=== PATIENT | male | born 1965 | race Caucasian/White ===

== ENCOUNTER 2016-04-13 11:49 | Inpatient (IN) | payer OTHER ==
[~2016-04-13] VITALS: Ht 167.6 cm; Wt 78.0 kg
[~2016-04-13 11:49] MED LIST: DAILY MULTIPLE1 EACH PO; GABAPENTIN300 M2 PO; LIPITOR20 M2 PO; LORAZEPAM1 M1 PO; METOPROLOL SUCC50 M2 PO; TRAZODONE HCL150 M1 PO
--- NOTE | 2016-04-13 11:54 | NUR ---
TRIAGE: 50 Y/O MALE PRESENTS C/O ETOH WITHDRAWAL, "I CAN'T SLEEP AND I'M HAVING NIGHTMARES." "I'M REQUESTING HELP." WHEN QUESTIONS REGARDING DETOX WERE POSED, PATIENT RESPONDED, "I DON'T KNOW." PATIENT APPEARS FLUSHED. BP 140/89. 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 DENIES ILLICIT DRUGS. PATIENT DENIES SUICIDALITY OR HOMICIDALITY.
--- NOTE | 2016-04-13 11:58 | NUR ---
PATIENT TO ROOM 13 VIA WHEELCHAIR AT THIS TIME. AMBULATES INDEPENDENTLY. SITTER REMAINS IN PLACE FOR PATIENT SAFETY. SITTER STATES THAT SHE WILL CONTACT SECURITY STAFF FOR A PATIENT WANDING.
--- NOTE | 2016-04-13 12:24 | NUR ---
(1) clothes bag locked in closet. PT's took home his valuables.
--- NOTE | 2016-04-13 12:27 | ED GENERAL ADULT ---
History of Present Illness General Chief Complaint: ETOH/Drug Related Complaint Stated Complaint: ALCHOHOL WITHDRAWL Source: patient, family, old records Exam Limitations: no limitations Vital Signs & Intake/Output Vital Signs & Intake/Output Vital Signs Date Time Temp Pulse Resp B/P Pulse O2 O2 Flow FiO2 Ox Delivery Rate 04/13 1505 96.9 87 20 122/60 04/13 1504 96.9 87 20 122/60 96 Room Air 04/13 1235 Room Air 04/13 1154 97.9 76 16 140/90 98 Room Air Room Air Allergies Coded Allergies: No Known Allergies (03/11/16) Reconcile Medications Atorvastatin Calcium (Lipitor) 20 MG TABLET 1 TAB PO DAILY DIRECTED ( Reported) Gabapentin 300 MG CAPSULE 2 CAP PO TID DIRECTED (Reported) Metoprolol Succinate 50 MG TAB.ER.24H 1 TAB PO DAILY DIRECTED (Reported) Multivitamin (Daily Multiple Vitamin) 1 EACH TABLET 1 TAB PO DAILY DIRECTED (Reported) Triage Note: TRIAGE: 50 Y/O MALE PRESENTS C/O ETOH WITHDRAWAL, "I CAN'T SLEEP AND I'M HAVING NIGHTMARES." "I'M REQUESTING HELP." WHEN QUESTIONS REGARDING DETOX WERE POSED, PATIENT RESPONDED, "I DON'T KNOW." PATIENT APPEARS FLUSHED. BP 140/89. 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 DENIES ILLICIT DRUGS. PATIENT DENIES SUICIDALITY OR HOMICIDALITY. Triage Nurses Notes Reviewed? yes HPI: Patient presents requesting alcohol detox. Patient was admitted on March 11 and then discharge on however he was sent home without a plan. Patient has been to the [facility] in the past. Patient was able to remain sober for approximately 2 and half weeks before he started drinking again. Patient's last drink was prior to arrival. Patient states he gets very shaky when he does not drink. Patient does have a history of withdrawal seizures. Patient was able to call the [facility] and they state that they will take him back once he has been medically detox. They request that his called them with anticipated discharge date and then she is to take him straight to the airport and they're going to fly to [place] for admission there. Patient denies any suicidal or homicidal ideations. Patient denies any hallucinations. STATES THAT HE HAS BEEN DRINKING HIS MEALS FOR THE PAST 4-5 DAYS AND WHENEVER HE HASN'T HAD ANYTHING WITHOUT ALL HE HAS VOMITED. Past History Travel History Traveled to [place] past 21 day No Medical History Any Pertinent Medical History? 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 No Review of Systems Review of Systems Constitutional: Reports: no symptoms. EENTM: Reports: no symptoms. Respiratory: Reports: no symptoms. Cardiovascular: Reports: no symptoms. GI: Reports: see HPI, nausea, vomiting. Genitourinary: Reports: no symptoms. Musculoskeletal: Reports: no symptoms. Skin: Reports: no symptoms. Neurological/Psychological: Reports: no symptoms. Hematologic/Endocrine: Reports: no symptoms. Immunologic/Allergic: Reports: no symptoms. All Other Systems: Reviewed and Negative Physical Exam Physical Exam General Appearance: well developed/nourished, alert, awake, moderate distress Head: atraumatic, normal appearance Eyes: Bilateral: PERRL, EOMI, other (SLUGGISH). Ears, Nose, Throat: normal pharynx, normal ENT inspection, hearing grossly normal Neck: normal inspection, supple, full range of motion Respiratory: normal breath sounds, chest non-tender, no respiratory distress, lungs clear Cardiovascular: regular rate/rhythm, normal peripheral pulses Gastrointestinal: normal bowel sounds, soft, non-tender Back: normal inspection, normal range of motion Extremities: normal inspection, normal capillary refill, normal range of motion, no edema Neurologic/Psych: no motor/sensory deficits, awake, alert, oriented x 3 Skin: intact, normal color, warm/dry Lymphatic: no anterior cervical ramon Core Measures ACS in differential dx? No CVA/TIA Diagnosis: No Severe Sepsis Present: No Septic Shock Present: No Progress Differential Diagnoses I considered the following diagnoses in my evaluation of the patient: [Alcohol dependency, electrolyte abnormality] Plan of Care: Orders Procedure Date/time Status Patient Data 04/13 1513 Active Admit to inpatient 04/13 1508 Active CIWA 04/13 1205 Active URINE DRUGS OF ABUSE 04/13 1205 Active ETHANOL 04/13 1205 Complete COMPREHENSIVE METABOLIC PANEL 04/13 120 Complete CBC WITHOUT DIFFERENTIAL 04/13 1204 Complete Laboratory Tests 04/13/16 1222: Anion Gap 21 H, Estimated GFR > 60, BUN/Creatinine Ratio 18.3, Glucose 103 H, Calcium 9.5, Total Bilirubin 0.8, AST 61 H, ALT 56, Alkaline Phosphatase 115, Total Protein 7.8, Albumin 5.3 H, Globulin 2.5, Albumin/Globulin Ratio 2.1, CBC w Diff NO MAN DIFF REQ, RBC 5.06, MCV 97.3 H, MCH 33.1 H, RDW 14.3, MPV 7.7, Gran % 70.1, Lymphocytes % 22.9, Monocytes % 6.4, Eosinophils % 0.2, Basophils % 0.4, Absolute Granulocytes 5.0, Absolute Lymphocytes 1.6, Absolute Monocytes 0.5 , Absolute Eosinophils 0, Absolute Basophils 0, PUBS MCHC 34.0, Serum Alcohol 353.0 Initial ED EKG: none Departure Departure Disposition: STILL A PATIENT Condition: Guarded Clinical Impression Primary Impression: Alcohol dependence with withdrawal Referrals: JOSELUIS ARANA,HAWA Leggett (PCP/Family) Departure Forms: Customer Survey General Discharge Information Admission Note Spoke With: NTAA ARANA,JUVENAL Documentation of Exam: Documentation of any treatments & extenuating circumstances including Concerns Regarding Discharge (functional status, medication knowledge or non-compliance, living conditions, etc.) that warrant an admission rather than observation: [ Ativan per [facility]. Once medically cleared patient will be discharged and will follow-up with addiction services of [facility].] Alcohol Withdrawl Admission ED Alcohol Detox Admission d/t: DTs/Seizure w/i last year Critical Care Note Critical Care Note Critical Care Time: non-applicable
--- NOTE | 2016-04-13 12:39 | NUR ---
PHARMACY CALLED FOR BANANA BAG
[2016-04-13 12:42] LABS: ABSOLUTE BASOPHIL COUNT 0 /CUMM (0.0-0.2); ABSOLUTE EOSINOPHIL COUNT 0 /CUMM (0.0-0.7); ABSOLUTE LYMPH COUNT 1.6 /CUMM (1.2-3.4); ABSOLUTE MONOCYTE COUNT 0.5 /CUMM (0.10-0.60); BASOPHIL % 0.4 % (0.0-2.0); EOSINOPHIL % 0.2 % (0-5); HEMATOCRIT 49.2 % (42-52); MEAN CORPUSCULAR HGB 33.1 PG (27.0-31.0); MEAN CORPUSCULAR VOLUME 97.3 FL (80.0-94.0); MEAN PLATELET VOLUME 7.7 FL (7.4-10.4); PLATELET COUNT 146 /CUMM (130-400); RBC DISTRIBUTION WIDTH 14.3 % (11.5-14.5); RED BLOOD CELL CT 5.06 /CUMM (4.70-6.10); WHITE BLOOD CELL COUNT 7.1 /CUMM (4.8-10.8)
[2016-04-13 12:50] LABS: GRANULOCYTE % 70.1 % (42.2-75.2)
--- NOTE | 2016-04-13 15:00 | NUR ---
PT'S TOOK HOME BELONGINGS BAG PER PT'S REQUEST. NO VALUABLES OR BELONGINGS BAGS IN ED SAFE OR BH CLOSET.
[2016-04-13 15:05] VITALS: BP 122/60
--- NOTE | 2016-04-13 16:36 | NUR ---
PT MOVED TO MEDICAL ROOM. PLACED ON TELE MONITIORING. NSR AT RATE OF 82
--- NOTE | 2016-04-13 17:14 | NUR ---
PT GOING TO ROOM 216-1.
[2016-04-13 17:39] VITALS: BP 134/72
[2016-04-13 18:05] VITALS: BP 122/84
--- NOTE | 2016-04-13 19:56 | NUR ---
PATIENT ARRIVED TO FLOOR AT 1800 VIA STRETCHER. PATIENT CALM AND COOPERATIVE. VSS. PATIENT COMPLAINS OF MILD NAUSEA AND HEADACHE. CIWA SCORE 6. PATIENT STATES BROUGHT BELONGING BACK HOME.
[2016-04-13 22:00] VITALS: BP 138/80
[2016-04-13 23:35] LABS: ABSOLUTE BASOPHIL COUNT 0.1 /CUMM (0.0-0.2); ABSOLUTE EOSINOPHIL COUNT 0.1 /CUMM (0.0-0.7); ABSOLUTE GRANULOCYTE CT 3.2 /CUMM (1.4-6.5); ABSOLUTE LYMPH COUNT 1.7 /CUMM (1.2-3.4); ABSOLUTE MONOCYTE COUNT 0.3 /CUMM (0.10-0.60); BASOPHIL % 1.7 % (0.0-2.0); EOSINOPHIL % 1.3 % (0-5); GRANULOCYTE % 60.1 % (42.2-75.2); HEMATOCRIT 45.1 % (42-52); MEAN CORPUSCULAR HGB 33.2 PG (27.0-31.0); MEAN CORPUSCULAR HGB CONC 34.2 G/DL (33.0-37.0); MEAN PLATELET VOLUME 7.4 FL (7.4-10.4); PLATELET COUNT 110 /CUMM (130-400); RBC DISTRIBUTION WIDTH 14.2 % (11.5-14.5); RED BLOOD CELL CT 4.65 /CUMM (4.70-6.10); WHITE BLOOD CELL COUNT 5.4 /CUMM (4.8-10.8)
--- NOTE | 2016-04-13 23:50 | Admission Certification ---
Admission Certification Certification Statement - As attending physician, I certify that at the time of - admission, based on clinical presentation, severity of - symptoms, need for further diagnostic testing and - therapeutic interventions, and risk of adverse outcomes - without in-hospital treatment, in my clinical assessment, - this patient requires an acute hospital stay for a minimum - of two nights or longer. I have also considered psychsocial - factors such as support system, advanced age, financial - issues, cognitive issues, and failed out-patient treatments, - past re-admission history, safety of patient, and lack of - compliance as applicable. Specific rationale supporting this admission is: EToH withdrawal, psych/ social work associate consult
[2016-04-13 23:52] VITALS: BP 120/74
[2016-04-14] VITALS: BP 120/74
--- NOTE | 2016-04-14 06:49 | PN- Housestaff ---
IHSAN COPELAND 04/14/16 0648: Subjective Follow-up For: - alcohol detox Subjective: Pt was comforable this am. No complaints. CIWA 0-11. Required ativan 3mg prn. vitals were stable overnight. Review of Systems Constitutional: Reports: see HPI. Objective Last 24 Hrs of Vital Signs/I&O Vital Signs Date Time Temp Pulse Resp B/P Pulse O2 O2 Flow FiO2 Ox Delivery Rate 04/14 0000 98.7 90 20 120/74 04/13 2352 98.7 90 20 120/74 93 04/13 2200 85 20 138/80 04/13 1805 97.8 94 21 122/84 93 Room Air 04/13 1746 86 04/13 1739 98.5 105 20 134/72 04/13 1738 98.5 105 20 134/72 96 Room Air 04/13 1505 96.9 87 20 122/60 04/13 1504 96.9 87 20 122/60 96 Room Air 04/13 1235 Room Air 04/13 1154 97.9 76 16 140/90 98 Room Air Room Air Intake & Output 04/14 0800 04/14 0000 04/13 1600 Intake Total 1000 750 Output Total Balance 1000 750 Intake, IV 1000 500 Intake, Oral 250 Patient 172 lb 172 lb Weight Physical Exam General Appearance: No Acute Distress Other Physical Findings: General Exam: AAOx3, No acute distress, Skin: No rashes, no breakdown HEENT: PERRLA, EOMI Neck: Supple, No JVD No cervical lymphadenopathy CVS: Reg Rate, Normal S1,S2, No MGR Resp: Normal air entry, no ronchi/rales Abdomen: Soft, no tenderness, Normal Bowel Sounds, folry catheter in place. good urine output Neuro: Normal Speech, Strength 5/5 b/l x 4 extremities, Sensation intact, CN III -XII NL, Reflexes 2+ Extremities: No cyanosis, pedal edema Current Medications: Current Medications Sig/Dorina Start time Last Medication Dose Route Stop Time Status Admin Acetaminophen 650 MG Q6P PRN 04/13 1730 DC PO Atorvastatin Calcium 20 MG DAILY 04/14 1000 AC PO Cyanocobalamin/ 1 BAG ONCE ONE 04/13 1230 DC 04/13 Thiamine/Pyridoxine IV 04/13 2028 1305 Dextrose/Water 1,000 ML Enoxaparin Sodium 40 MG DAILY 04/13 1726 AC SC Folic Acid 1 MG DAILY 04/14 1000 AC PO 04/16 1001 Gabapentin 600 MG TID 04/13 2200 AC 04/13 PO 2235 Ibuprofen 600 MG Q4P PRN 04/13 2014 AC 04/14 PO 0020 Ibuprofen 400 MG .STK-MED ONE 04/13 2011 DC PO 04/13 2012 Lorazepam 0 Q1P PRN 04/13 2014 AC 04/13 IV 2241 Lorazepam 2 MG Q6 04/13 1800 DC 04/14 PO 04/14 0001 0019 Lorazepam 0 .STK-MED ONE 04/13 1744 DC PO Lorazepam 2 MG Q2P PRN 04/13 1730 DC PO Lorazepam 1 MG Q2P PRN 04/13 1730 DC PO Lorazepam 0 .STK-MED ONE 04/13 1525 DC .ROUTE Lorazepam 1 MG ONCE ONE 04/13 1515 DC 04/13 IV 04/13 1516 1531 Metoprolol Succinate 50 MG DAILY 04/14 1000 AC PO Multivitamins 1 TAB DAILY 04/14 1000 AC PO 04/14 1001 Nicotine 14 MG DAILY 04/13 1809 AC TOP Ondansetron HCl 4 MG Q6P PRN 04/14 0315 CAN IV Ondansetron HCl 4 MG ONCE ONE 04/13 1900 DC 04/13 IV 04/13 1901 1905 Patient Medication 1 UNIT ONE NR 04/13 2100 TX Teaching ED 04/13 2130 Patient Medication 1 UNIT ONE NR 04/13 2100 TX Teaching ED 04/13 2130 Patient Medication 1 UNIT ONE NR 04/13 1745 TX Teaching ED 04/13 1800 Ramelteon 8 MG AT BEDTIME 04/13 2200 04/13 PO 2235 Sodium Chloride 1,000 ML Q10H 04/13 1815 04/13 IV 1912 Thiamine HCl 100 MG DAILY 04/14 1000 AC PO 04/16 1001 Trazodone HCl 50 MG ONCE ONE 04/13 2100 DC 04/13 PO 04/13 210 2236 Last 24 Hrs of Lab/Wilman Results Last 24 Hrs of Labs/Mics: Laboratory Tests 04/13/16 2320: CBC w Diff NO MAN DIFF REQ, RBC 4.65 L, MCV 97.0 H, MCH 33.2 H, RDW 14.2, MPV 7.4, Gran % 60.1, Lymphocytes % 30.9, Monocytes % 6.0, Eosinophils % 1.3, Basophils % 1.7, Absolute Granulocytes 3.2, Absolute Lymphocytes 1.7, Absolute Monocytes 0.3, Absolute Eosinophils 0.1, Absolute Basophils 0.1, [facility] MCHC 34.2 04/13/16 1222: Anion Gap 21 H, Estimated GFR > 60, BUN/Creatinine Ratio 18.3, Glucose 103 H, Calcium 9.5, Total Bilirubin 0.8, AST 61 H, ALT 56, Alkaline Phosphatase 115, Total Protein 7.8, Albumin 5.3 H, Globulin 2.5, Albumin/Globulin Ratio 2.1, Vitamin B12 504, Folate 9.1, CBC w Diff NO MAN DIFF REQ, RBC 5.06, MCV 97.3 H, MCH 33.1 H, RDW 14.3, MPV 7.7, Gran % 70.1, Lymphocytes % 22.9, Monocytes % 6.4 , Eosinophils % 0.2, Basophils % 0.4, Absolute Granulocytes 5.0, Absolute Lymphocytes 1.6, Absolute Monocytes 0.5, Absolute Eosinophils 0, Absolute Basophils 0, [facility] MCHC 34.0, Serum Alcohol 353.0 Assessment/Plan Assessment: Ms Maguire is a 50-year-old man has a past medical history of alcohol withdrawal seizures (09/2015), multiple hospital admissions for alcohol withdrawal, hypertension, last hospitalization at [facility] (02/2016) for alcohol withdrawal, who is being managed for alcohol detox. At the time of admission, vitals-temp 96.9, pulse rate 87, respiratory 20, blood pressure 122/60, pulse ox-96% on room air. Laboratory findings indicated WBC 7.1, hemoglobin 16.7/hematocrit 49.2, MCV 97.3, platelets 146, normal electrolytes sodium 140, potassium 4.1, chloride 96, bicarbonate 23, normal renal function BUN 11, serum creatinine 0.6, anion gap 21 (likely due to alcohol ), liver function-AST 61, ALT 56, alkaline phosphatase 115 (likely due to acute alcohol intake). Admission diagnosis: #1 alcohol detox Below is the problem list and plan: #1 alcohol detox- Start the patient on benzodiazepines with intravenous Ativan 1 mg every when necessary and a standing dose of by mouth Ativan 2 mg every 6. CIWA protocol. Continue thiamine, multivitamin, folate acid. No signs and symptoms of liver disease at this time. Continue to monitor closely for alcohol withdrawal, and seizures. #2 hypertension and hyperlipidemia- continue metoprolol and atorvastatin at his home dose. Continue to monitor closely. #3 mental health-psychiatry evaluation while in the hospital. Re-initiate trazodone for bedtime. #3 DVT prophylaxis-Lovenox. Problem List: 1. Alcohol dependence with withdrawal Pain Ratin Pain Location: head Pain Goal: Pain 4 or less Pain Plan: tylenol prn Tomorrow's Labs & Rationales: wade PEACE MD,JUVENAL 04/14/16 1257: Attending MD Review Statement Attending Statement Attending MD Statement: examined this patient, discuss w/resident/PA/SOD FARMER, agreed w/resident/PA/SOD FARMER, discussed with family, reviewed EMR data (avail), discussed with nursing, discussed with case mgmt, reviewed images, amended to note Attending Assessment/Plan: patient seen and examined. Resting comfortably in bed. Does not offer any complaints. CIWA ranging from 0-11. Continue with Ativan. Discontinue IV fluids as patient has good oral intake. Follow-up psych and child welfare social worker.
[2016-04-14 08:00] VITALS: BP 144/94
[2016-04-14 08:10] VITALS: BP 144/94
[2016-04-14 10:25] LABS: ABSOLUTE BASOPHIL COUNT 0 /CUMM (0.0-0.2); ABSOLUTE EOSINOPHIL COUNT 0.1 /CUMM (0.0-0.7); ABSOLUTE GRANULOCYTE CT 2.7 /CUMM (1.4-6.5); ABSOLUTE LYMPH COUNT 1.4 /CUMM (1.2-3.4); ABSOLUTE MONOCYTE COUNT 0.2 /CUMM (0.10-0.60); BASOPHIL % 0.5 % (0.0-2.0); EOSINOPHIL % 1.2 % (0-5); GRANULOCYTE % 61.6 % (42.2-75.2); HEMATOCRIT 45.6 % (42-52); MEAN CORPUSCULAR HGB 33.4 PG (27.0-31.0); MEAN CORPUSCULAR HGB CONC 34.5 G/DL (33.0-37.0); MEAN CORPUSCULAR VOLUME 96.8 FL (80.0-94.0); MEAN PLATELET VOLUME 8.1 FL (7.4-10.4); RBC DISTRIBUTION WIDTH 14.3 % (11.5-14.5); RED BLOOD CELL CT 4.71 /CUMM (4.70-6.10); WHITE BLOOD CELL COUNT 4.3 /CUMM (4.8-10.8)
[2016-04-14 12:03] LABS: PLATELET COUNT 90 /CUMM (130-400)
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
[2016-04-14 15:49] VITALS: BP 142/108
[2016-04-14 17:00] VITALS: BP 146/98
[2016-04-14 23:55] VITALS: BP 146/102
[2016-04-15] VITALS (10 sets, daily range): BP systolic 130–178; BP diastolic 60–122
--- NOTE | 2016-04-15 07:17 | PN- Housestaff ---
IHSAN COPELAND 04/15/16 0717: Subjective Follow-up For: 1. alcohol withdrawl Subjective: He was comfortable this morning. He only required 2 mg IV Ativan +5 doses of by mouth Ativan. CIWA scores remain around 0-12. Review of Systems Constitutional: Reports: see HPI. Objective Last 24 Hrs of Vital Signs/I&O Vital Signs Date Time Temp Pulse Resp B/P Pulse O2 O2 Flow FiO2 Ox Delivery Rate 04/14 2355 98.5 65 20 146/102 96 Room Air 04/14 1700 146/98 04/14 1549 98.4 75 22 142/108 94 Room Air 04/14 0920 144/94 04/14 0810 98.7 88 20 144/94 94 Room Air 04/14 0800 88 144/94 Intake & Output 04/15 0800 04/15 0000 04/14 1600 Intake Total 240 1600 1300 Output Total 400 Balance 240 1600 900 Intake, IV 700 Intake, Oral 240 1600 600 Output, Urine 400 Physical Exam General Appearance: No Acute Distress Other Physical Findings: General Exam: AAOx3, No acute distress, Skin: No rashes, no breakdown HEENT: PERRLA, EOMI Neck: Supple, No JVD No cervical lymphadenopathy CVS: Reg Rate, Normal S1,S2, No MGR Resp: Normal air entry, no ronchi/rales Abdomen: Soft, No tenderness, Normal Bowel Sounds Neuro: Normal Speech, Strength 5/5 b/l x 4 extremities, Sensation intact, CN III -XII NL, Reflexes 2+ Extremities: No cyanosis, pedal edema Current Medications: Current Medications Sig/Dorina Start time Last Medication Dose Route Stop Time Status Admin Atorvastatin Calcium 20 MG 1700 04/14 1700 AC PO Atorvastatin Calcium 20 MG DAILY 04/14 1000 DC 04/14 PO 0752 Enoxaparin Sodium 40 MG DAILY 04/13 1726 AC 04/14 SC 0751 Folic Acid 1 MG DAILY 04/14 1000 AC 04/14 PO 04/16 1001 0752 Gabapentin 600 MG TID 04/13 2199 AC 04/14 PO 2255 Ibuprofen 600 MG Q4P PRN 04/13 2014 AC 04/14 PO 0020 Lorazepam 2 MG Q6 04/14 1200 AC 04/15 PO 0509 Lorazepam 0 Q1P PRN 04/13 IV 2110 Metoprolol Succinate 50 MG DAILY 04/14 1000 AC 04/14 PO 0920 Multivitamins 1 TAB DAILY 04/14 1000 DC 04/14 PO 04/14 1001 0752 Naltrexone HCl 50 MG DAILY 04/14 1645 AC 04/14 PO 1857 Nicotine 14 MG DAILY 04/13 1809 AC 04/14 TOP 0752 Ondansetron HCl 4 MG ONCE ONE 04/14 1415 CAN IV 04/14 1416 Ondansetron HCl 4 MG Q6P PRN 04/14 1415 AC 04/14 IV 1426 Ramelteon 8 MG AT BEDTIME 04/13 220 AC 04/14 PO 2255 Sodium Chloride 1,000 ML Q10H 04/13 1815 DC 04/14 IV 0752 Thiamine HCl 100 MG DAILY 04/14 1000 AC 04/14 PO 04/16 1001 0752 Trazodone HCl 150 MG AT BEDTIME 04/14 2199 AC 04/14 PO 2255 Last 24 Hrs of Lab/Wilman Results Last 24 Hrs of Labs/Mics: Laboratory Tests 04/14/16 0805: Anion Gap 10, Estimated GFR > 60, BUN/Creatinine Ratio 21.4, CBC w Diff NO MAN DIFF REQ, RBC 4.71, MCV 96.8 H, MCH 33.4 H, RDW 14.3, MPV 8.1, Gran % 61.6, Lymphocytes % 31.5, Monocytes % 5.2, Eosinophils % 1.2, Basophils % 0.5, Absolute Granulocytes 2.7, Absolute Lymphocytes 1.4, Absolute Monocytes 0.2, Absolute Eosinophils 0.1, Absolute Basophils 0, PUBS MCHC 34.5 Assessment/Plan Assessment: Ms Maguire is a 50-year-old man has a 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 At the time of admission, vitals-temp 96.9, pulse rate 87, respiratory 20, blood pressure 122/60, pulse ox-96% on room air. Laboratory findings indicated WBC 7.1, hemoglobin 16.7/hematocrit 49.2, MCV 97.3, platelets 146, normal electrolytes sodium 140, potassium 4.1, chloride 96, bicarbonate 23, normal renal function BUN 11, serum creatinine 0.6, anion gap 21 (likely due to alcohol ), liver function-AST 61, ALT 56, alkaline phosphatase 115 (likely due to acute alcohol intake). Admission diagnosis: #1 alcohol detox Below is the problem list and plan: #1 alcohol detox- Start the patient on benzodiazepines with intravenous Ativan 1 mg every when necessary and a standing dose of by mouth Ativan 2 mg every 8. CIWA protocol. Continue thiamine, multivitamin, folate acid. No signs and symptoms of liver disease at this time. Continue to monitor closely for alcohol withdrawal, and seizures. #2 hypertension and hyperlipidemia- continue metoprolol and atorvastatin at his home dose. Continue to monitor closely. #3 mental health-psychiatry evaluation while in the hospital. Re-initiate trazodone for bedtime. #3 DVT prophylaxis-Lovenox. Problem List: 1. Alcohol dependence with withdrawal Pain Ratin Pain Location: None Pain Goal: Pain 4 or less Pain Plan: Tylenol when necessary Tomorrow's Labs & Rationales: No labs necessary CATALINO SHEPARD MD 04/15/16 1118: Attending MD Review Statement Attending Statement Attending MD Statement: examined this patient, discuss w/resident/PA/HEAD LINEMAN, agreed w/resident/PA/HEAD LINEMAN, reviewed EMR data (avail) Attending Assessment/Plan: Doing well today. Will continue Ativan taper, home medications, DVT PPx
[2016-04-15 09:39] LABS: ABSOLUTE BASOPHIL COUNT 0 /CUMM (0.0-0.2); ABSOLUTE EOSINOPHIL COUNT 0.1 /CUMM (0.0-0.7); ABSOLUTE LYMPH COUNT 1.2 /CUMM (1.2-3.4); ABSOLUTE MONOCYTE COUNT 0.2 /CUMM (0.10-0.60); BASOPHIL % 0.4 % (0.0-2.0); EOSINOPHIL % 3.2 % (0-5); GRANULOCYTE % 56.2 % (42.2-75.2); HEMATOCRIT 43.3 % (42-52); MEAN CORPUSCULAR HGB 33.5 PG (27.0-31.0); MEAN CORPUSCULAR HGB CONC 34.6 G/DL (33.0-37.0); MEAN CORPUSCULAR VOLUME 96.9 FL (80.0-94.0); MEAN PLATELET VOLUME 8.4 FL (7.4-10.4); PLATELET COUNT 75 /CUMM (130-400); RBC DISTRIBUTION WIDTH 13.7 % (11.5-14.5); RED BLOOD CELL CT 4.47 /CUMM (4.70-6.10); WHITE BLOOD CELL COUNT 3.5 /CUMM (4.8-10.8)
--- NOTE | 2016-04-15 14:12 | PN- Psychiatry ---
Assessment/Plan Impression: Tiffanie reports that he did not appear for his last [facility] appointment because it was during his workday, 8A-5P, and he works in [place]. He is interested in going to [facility] in [place], [place], and wishes to go there on 04/16/16. I informed him that his alcohol detox protocol takes 5 days to finish. He reports a history of an alcohol withdrawal seizure last year. He denies any history of delirium tremens. The total daily lorazepam dosing, scheduled, should be reduced by 20% per day. The patient is also taking trazodone 150 mg PO at bedtime, which may continue. He also asked to have naltrexone started, which has been done. The patient needs to finish his lorazepam detox taper here in the hospital before discharging to travel to [facility] in [place]. I have suggested a course for the lorazepam taper below. The patient is agreeable to come to [facility] after he finishes his alcohol rehab program in [place]. He may need to adjust his work hours, or find another program that can accommodate his hours. He lives in [place] and works in [place] from 8A-5P M-F. Suggestion: 1. Continue trazodone 150 mg at bedtime and naltrexone 50 mg daily. 2. Please reinforce teaching on the use of naltrexone in the event the patient needs to have opiate pain medications, such as after a dental procedure. Those pain medications will be ineffective as ordered, and patients on naltrexone may induce respiratory depression by overdosing. 3. Standing lorazepam ETOH detox taper protocol: a. Lorazepam 2 mg PO q 6 hours for 5 doses, then b. Lorazepam 1.5 mg PO q 6 hours for 5 doses, then c. Lorazepam 1 mg PO q 6 hours for 5 doses, then d. Lorazepam 0.5 mg PO q 6 hours for 5 doses, then stop 4. Continue PRN lorazepam order, along with CIWA monitoring. The PRN orders contained within the 'ETOH Detox' order set have every 2 hour dosing, which may reduce nursing workload. There is still a requirement to reassess one hour after med administration. 5. Continue daily thiamine, folic acid and MVI. 6. is following for aftercare planning. Thank-you for asking us to participate in Tiffanie's care. We do not anticipate further visits. Please reconsult if other psychiatric matters arise. Oleksandr Roy APRN, Pager [phone] Subjective Subjective: A+O, denies AVTH, presents no leandro delusions. Denies SI/HI. The patient is calm and cooperative. He reports his mood as anxious, affect congruent. Objective Last 24 Hrs of Vital Signs/I&O Vital Signs Date Time Temp Pulse Resp B/P Pulse O2 O2 Flow FiO2 Ox Delivery Rate 04/15 1258 144/100 04/15 1245 144/100 04/15 0901 82 130/60 04/15 0811 98.0 82 18 130/60 97 Room Air 04/14 2355 98.5 65 20 146/102 96 Room Air 04/14 1700 146/98 04/14 1549 98.4 75 22 142/108 94 Room Air Intake & Output 04/15 1600 04/15 0800 04/15 0000 Intake Total 240 1600 Output Total Balance 240 1600 Intake, Oral 240 1600 Results Last 24 Hrs of Labs/Mics: Laboratory Tests 04/15 0810 Hematology CBC w Diff NO MAN DIFF REQ WBC (4.8 - 10.8 /CUMM) 3.5 L RBC (4.70 - 6.10 /CUMM) 4.47 L Hgb (14.0 - 18.0 G/DL) 14.9 Hct (42 - 52 %) 43.3 MCV (80.0 - 94.0 FL) 96.9 H MCH (27.0 - 31.0 PG) 33.5 H RDW (11.5 - 14.5 %) 13.7 Plt Count (130 - 400 /CUMM) 75 L MPV (7.4 - 10.4 FL) 8.4 Gran % (42.2 - 75.2 %) 56.2 Lymphocytes % (20.5 - 51.1 %) 33.8 Monocytes % (1.7 - 9.3 %) 6.4 Eosinophils % (0 - 5 %) 3.2 Basophils % (0.0 - 2.0 %) 0.4 Absolute Granulocytes (1.4 - 6.5 /CUMM) 2.0 Absolute Lymphocytes (1.2 - 3.4 /CUMM) 1.2 Absolute Monocytes (0.10 - 0.60 /CUMM) 0.2 Absolute Eosinophils (0.0 - 0.7 /CUMM) 0.1 Absolute Basophils (0.0 - 0.2 /CUMM) 0 PUBS MCHC (33.0 - 37.0 G/DL) 34.6
--- NOTE | 2016-04-15 16:21 | NUR ---
NSG NOTE: BP 170/110; PATI #[id number] AWARE; WILL RECHECK IN 15 MIN PER MD REQUEST; WILL CONT TO MONITOR
--- NOTE | 2016-04-15 17:24 | NUR ---
NSG NOTE: BP RECHECK 150/110; PATI #[id number] AWARE
--- NOTE | 2016-04-15 17:25 | NUR ---
NSG NOTE: PATIENTS BLOOD PRESSURE 160/120 AT THIS TIME; HR 75; THIS RN PAGED AND TEXT-PAGED VICKI ESCOTO #[phone]; WILL CONT TO MONITOR
--- NOTE | 2016-04-15 19:16 | NUR ---
Referral received this am via electronic mail order clerk. This patient is a 50 year old man, admitted to the hospital on 04/13/16 for a voluntary ETOH Detox. This patient is known to this account underwriter from a previous admission one month ago, also for detox. At that time, he would consider only IOP level of care. He was provided with an intake appointment at our IOP but did not keep the appointment, reporting that he needed to go to work. Rashaun has been placed on the CIWA protocol with ativan taper instituted. Today, RASHAUN reports he plans to go to [facility] in [place] when detox is finished. In discussing detox progression with psychiatry and medicine, it was determined that his detox would last until , and discharge would be anticipated. This has been discussed with patient and his , Karon, who will transport him to the [facility] for a flight to [place] on evening. This morning, Rashaun was visited by a staff member of [facility], and further, he signed a release so appropriate clinical information could be provided to [facility]. Follow; FAX Appropriate clinical to [facility].
--- NOTE | 2016-04-15 19:53 | NUR ---
BP 178/122. PAGED APPRENTICE FUNERAL DIRECTOR #[phone].
[2016-04-16] VITALS (7 sets, daily range): BP systolic 132–152; BP diastolic 86–108
--- NOTE | 2016-04-16 05:36 | PN- Housestaff ---
IHSAN COPELAND 04/16/16 0535: Subjective Follow-up For: 1. alcohol detox Subjective: Mr. Maguire was comfortable this morning. Stated that he slept well last night. Blood pressure was slightly elevated yesterday evening after which she was administered one-time dose of hydralazine. BP 170/110. He was afebrile overnight. CIWA scores 0-10. Required 4 mg of IV Ativan and 4 mg by mouth Ativan in the last 24 hours. Review of Systems Constitutional: Reports: see HPI. Objective Last 24 Hrs of Vital Signs/I&O Vital Signs Date Time Temp Pulse Resp B/P Pulse O2 O2 Flow FiO2 Ox Delivery Rate 04/15 223 98.0 70 20 132/76 96 Room Air 04/15 2131 72 148/102 04/15 2046 178/122 04/15 1953 178/122 04/15 1727 75 160/120 04/15 1726 75 160/120 04/15 1605 99.1 75 18 170/110 96 04/15 1600 170/110 04/15 1258 144/100 04/15 1245 144/100 04/15 0901 82 130/60 04/15 0811 98.0 82 18 130/60 97 Room Air Intake & Output 04/16 0800 04/16 0000 04/15 1600 Intake Total 1370 Output Total 850 Balance 520 Intake, IV 20 Intake, Oral 1350 Number 0 Bowel Movements Output, Urine 850 Physical Exam General Appearance: No Acute Distress Other Physical Findings: General Exam: AAOx3, No acute distress, Skin: No rashes, no breakdown HEENT: PERRLA, EOMI Neck: Supple, No JVD No cervical lymphadenopathy CVS: Reg Rate, Normal S1,S2, No MGR Resp: Normal air entry, no ronchi/rales Abdomen: Soft, No tenderness, Normal Bowel Sounds Neuro: Normal Speech, Strength 5/5 b/l x 4 extremities, Sensation intact, CN III -XII NL, Reflexes 2+ Extremities: No cyanosis, pedal edema Current Medications: Current Medications Sig/Dorina Start time Last Medication Dose Route Stop Time Status Admin Atorvastatin Calcium 20 MG 1700 04/14 1700 AC 04/15 PO 1612 Enoxaparin Sodium 40 MG DAILY 04/13 1726 AC 04/15 SC 0900 Folic Acid 1 MG DAILY 04/14 1000 AC 04/15 PO 04/18 1002 0900 Gabapentin 600 MG TID 04/13 220 AC 04/15 PO 2115 Hydralazine HCl 25 MG ONCE ONE 04/15 1815 DC 04/15 PO 04/15 181 2046 Ibuprofen 600 MG Q4P PRN 04/13 2014 AC 04/14 PO 0020 Lorazepam 2 MG Q8 04/15 1400 AC 04/15 PO 211 Lorazepam 2 MG Q6 04/14 1200 DC 04/15 PO 0509 Lorazepam 0 Q1P PRN 04/13 2014 AC 04/15 IV 1732 Metoprolol Succinate 50 MG DAILY 04/14 1000 AC 04/15 PO 0901 Multivitamins 1 TAB DAILY 04/16 1000 AC PO 04/16 1001 Naltrexone HCl 50 MG DAILY 04/14 1645 AC 04/15 PO 0901 Nicotine 14 MG DAILY 04/13 180 AC 04/15 TOP 0906 Ondansetron HCl 4 MG .STK-MED ONE 04/15 0903 DC IM 04/15 0904 Ondansetron HCl 4 MG Q6P PRN 04/14 1415 AC 04/15 IV 0906 Ramelteon 8 MG AT BEDTIME 04/13 220 AC 04/15 PO 2115 Thiamine HCl 100 MG DAILY 04/14 1000 AC 04/15 PO 04/18 1002 0900 Trazodone HCl 150 MG AT BEDTIME 04/14 2199 AC 04/15 PO 211 Last 24 Hrs of Lab/Wilman Results Last 24 Hrs of Labs/Mics: Laboratory Tests 04/15/16 0810: CBC w Diff NO MAN DIFF REQ, RBC 4.47 L, MCV 96.9 H, MCH 33.5 H, RDW 13.7, MPV 8.4, Gran % 56.2, Lymphocytes % 33.8, Monocytes % 6.4, Eosinophils % 3.2, Basophils % 0.4, Absolute Granulocytes 2.0, Absolute Lymphocytes 1.2, Absolute Monocytes 0.2, Absolute Eosinophils 0.1, Absolute Basophils 0, PUBS MCHC 34.6 Assessment/Plan Assessment: Ms Maguire is a 50-year-old man has a past medical 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 Admission diagnosis: #1 alcohol detox Below is the problem list and plan: #1 alcohol detox- Start the patient on benzodiazepines with intravenous Ativan 1 mg every when necessary and a standing dose of by mouth Ativan 2 mg every 8. Change to Ativan 1.5 mg every 8 hours starting this p.m. CIWA protocol. Continue thiamine, multivitamin, folate acid. No signs and symptoms of liver disease at this time. Continue to monitor closely for alcohol withdrawal, and seizures. #2 hypertension and hyperlipidemia- continue metoprolol xl and atorvastatin at his home dose. Added lisinopril 10 mg by mouth daily in addition to beta sumeet. Continue to monitor blood pressure closely. #3 mental health-psychiatry evaluation while in the hospital. Re-initiate trazodone for bedtime. #4 thrombocytopenia- platelet counts trending down;a similar pattern was seen at last year's admission. Likely acute alcohol intake. It causes immunosuppression and also thrombocytopenia. #3 DVT prophylaxis-Lovenox. #4 discharge disposition-plan to discharge the patient on if possible, based upon Ativan requirements for the next 24 hours. Problem List: 1. Alcohol dependence with withdrawal 2. Alcohol dependence Pain Ratin Pain Location: None Pain Goal: Pain 4 or less Pain Plan: Tylenol when necessary Tomorrow's Labs & Rationales: CBC-patient has thrombocytopenia and leukopenia. [facility] 04/24/16 1102: Attending MD Review Statement Attending Statement Attending MD Statement: examined this patient, discuss w/resident/PA/RN OR LPN, agreed w/resident/PA/RN OR LPN, reviewed EMR data (avail) Attending Assessment/Plan: 50-year-old man with past medical history of alcohol withdrawal seizures (2015), multiple hospital admissions for alcohol withdrawal, hypertension, last hospitalization at [facility] (02/2016) for alcohol withdrawal, who is being managed for alcohol detox. Patient seen and examined at bedside. Continue with current management for alcohol detox. CIWA scores has been low since last night and we will continue to monitor closely. If stays stable we will possibly be able to discharge the patient on .
--- NOTE | 2016-04-16 14:38 | PN- Att Addend ---
Attending MD Review Statement Attending Statement Attending MD Statement: examined this patient, discuss w/resident/PA/PAY STATION COLLECTOR, agreed w/resident/PA/PAY STATION COLLECTOR, reviewed EMR data (avail), discussed w/case mgmt Attending Assessment/Plan: 50-year-old man with past medical history of alcohol withdrawal seizures (2015), multiple hospital admissions for alcohol withdrawal, hypertension, last hospitalization at [facility] (02/2016) for alcohol withdrawal, who is being managed for alcohol detox. Patient seen and examined at bedside. Continue with current management for alcohol detox. CIWA scores has been low since last night and we will continue to monitor closely. If stays stable we will possibly be able to discharge the patient on .
[2016-04-17 00:01] VITALS: BP 114/80
--- NOTE | 2016-04-17 00:38 | NUR ---
ALERT AND ORIENTED X 3. VITAL SIGNS STABLE. ON ROOM AIR 1800 MEDICATION GIVEN FOR CIWA OF 8 WILL CONTINUE TO MONITOR
--- NOTE | 2016-04-17 05:48 | PN- Housestaff ---
Subjective Follow-up For: 1. alcohol detox Subjective: Mr Andrez was comfortable. He complained of some swelling in this right cheek area, closer to the previous dental work that was done a few months ago. BP was adequately controlled with toprol and lisnopril. Review of Systems Constitutional: Reports: see HPI. Objective Last 24 Hrs of Vital Signs/I&O Vital Signs Date Time Temp Pulse Resp B/P Pulse O2 O2 Flow FiO2 Ox Delivery Rate 04/17 0001 98.4 72 20 114/80 95 Room Air 04/16 1900 98.7 76 20 138/95 04/16 1800 98.7 76 20 138/95 04/16 1622 98.7 76 20 138/95 94 Room Air 04/16 1600 98.7 76 20 138/95 04/16 1400 132/86 04/16 1200 152/108 04/16 1006 140/90 04/16 0917 82 140/90 04/16 0618 97.5 59 20 140/90 96 Room Air Intake & Output 04/17 0800 04/17 0000 04/16 1600 Intake Total 600 480 Output Total 800 Balance 600 -320 Intake, Oral 600 480 Output, Urine 800 Physical Exam General Appearance: No Acute Distress Skin: No Rashes, No Breakdown, swelling on the left side of his face. HEENT: PERRLA, EOMI Neck: No JVD, No thryomegaly Lymphatic: Cervical nl Cardiovascular: Regular Rate, Normal S1, Normal S2 Lungs: Normal Air Movement, no wheezes, no crackles. Abdomen: Normal Bowel Sounds, Soft, No Tenderness Neurological: Normal Speech, Strength at 5/5 X4 Ext, Normal Tone, Sensation Intact, Cranial Nerves 3-12 NL, Reflexes 2+ Extremities: No Clubbing, No Cyanosis, Normal Pulses Vascular: Pulses Symmetrical Current Medications: Current Medications Sig/Dorina Start time Last Medication Dose Route Stop Time Status Admin Atorvastatin Calcium 20 MG 1700 04/14 1700 AC 04/16 PO 1654 Docusate Sodium 100 MG DAILY 04/16 1000 AC PO Enoxaparin Sodium 40 MG DAILY 04/13 1726 AC 04/16 SC 0915 Folic Acid 1 MG DAILY 04/14 1000 AC 04/16 PO 04/18 1002 0917 Gabapentin 600 MG TID 04/13 2199 AC 04/16 PO 2126 Ibuprofen 600 MG Q4P PRN 04/13 2014 AC 04/14 PO 0020 Lisinopril 10 MG DAILY 04/16 1000 AC 04/16 PO 1006 Lorazepam 1.5 MG TID 04/16 2200 AC 04/16 PO 2127 Lorazepam 2 MG Q8 04/15 1400 DC 04/16 PO 04/16 1500 1358 Lorazepam 0 Q1P PRN 04/13 2015 AC 04/16 IV 1841 Metoprolol Succinate 50 MG DAILY 04/14 1000 AC 04/16 PO 0917 Multivitamins 1 TAB DAILY 04/16 1000 DC 04/16 PO 04/16 1001 0916 Naltrexone HCl 50 MG DAILY 04/14 1645 AC 04/16 PO 0916 Nicotine 14 MG DAILY 04/13 1809 AC 04/16 TOP 0916 Ondansetron HCl 4 MG Q6P PRN 04/14 1415 AC 04/15 IV 0906 Ramelteon 8 MG AT BEDTIME 04/13 2200 AC 04/16 PO 2126 Senna/Docusate Sodium 1 TAB BID PRN 04/16 0900 AC PO Thiamine HCl 100 MG DAILY 04/14 1000 AC 04/16 PO 04/18 1002 0916 Trazodone HCl 150 MG AT BEDTIME 04/14 220 AC 04/16 PO 2126 Assessment/Plan Assessment: Ms Maguire is a 50-year-old man has a past medical 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 Admission diagnosis: #1 alcohol detox Below is the problem list and plan: #1 alcohol detox- Start the patient on benzodiazepines with intravenous Ativan 1 mg every when necessary and a standing dose of by mouth Ativan 1.5 mg every 8. Change to Ativan 1 mg every 8 hours starting this p.m. [facility] protocol. Continue thiamine, multivitamin, folate acid. No signs and symptoms of liver disease at this time. Continue to monitor closely for alcohol withdrawal, and seizures. #2 hypertension and hyperlipidemia- continue metoprolol xl and atorvastatin at his home dose. Added lisinopril 10 mg by mouth daily in addition to beta sumeet. Since he had swelling on the left side of the face; to discontinue lisinopril. Likely an allergic reaction- but angioedema is on the differentials. No respiratory complaints at this time. Benadryl was administed. #3 mental health-psychiatry evaluation while in the hospital. Re-initiate trazodone for bedtime. #4 thrombocytopenia- platelet counts trending down, which improved;a similar pattern was seen at last year's admission. Likely acute alcohol intake. It causes immunosuppression and also thrombocytopenia. #3 DVT prophylaxis-Lovenox. #4 discharge disposition-plan to discharge the patient on if possible, based upon Ativan requirements for the next 24 hours. Problem List: 1. Alcohol dependence with withdrawal 2. Depression Pain Ratin Pain Location: none Pain Goal: Pain 4 or less Pain Plan: tylenol prn Tomorrow's Labs & Rationales: cbc for monitoring thrombocytopenia
[2016-04-17 08:23] VITALS: BP 117/78
[2016-04-17 08:33] LABS: ABSOLUTE BASOPHIL COUNT 0 /CUMM (0.0-0.2); ABSOLUTE EOSINOPHIL COUNT 0.2 /CUMM (0.0-0.7); ABSOLUTE GRANULOCYTE CT 3.5 /CUMM (1.4-6.5); ABSOLUTE LYMPH COUNT 2.9 /CUMM (1.2-3.4); ABSOLUTE MONOCYTE COUNT 0.3 /CUMM (0.10-0.60); BASOPHIL % 0.6 % (0.0-2.0); EOSINOPHIL % 3.4 % (0-5); MEAN CORPUSCULAR HGB 33.3 PG (27.0-31.0); MEAN CORPUSCULAR HGB CONC 33.9 G/DL (33.0-37.0); MEAN CORPUSCULAR VOLUME 98.3 FL (80.0-94.0); MEAN PLATELET VOLUME 8.7 FL (7.4-10.4); PLATELET COUNT 99 /CUMM (130-400); RBC DISTRIBUTION WIDTH 13.7 % (11.5-14.5); RED BLOOD CELL CT 5.05 /CUMM (4.70-6.10)
[2016-04-17 09:34] LABS: HEMATOCRIT 49.7 % (42-52)
[2016-04-17 16:16] VITALS: BP 120/88
--- NOTE | 2016-04-17 16:27 | PN- Att Addend ---
Attending MD Review Statement Attending Statement Attending MD Statement: examined this patient, discuss w/resident/PA/BIOFUELS PLANT MANAGER, agreed w/resident/PA/BIOFUELS PLANT MANAGER, reviewed EMR data (avail), discussed w/nursing, discussed w/ case mgmt Attending Assessment/Plan: 50-year-old man with past medical history of alcohol withdrawal seizures (2015), multiple hospital admissions for alcohol withdrawal, hypertension, last hospitalization at [facility] (02/2016) for alcohol withdrawal, who is being managed for alcohol detox. Patient seen and examined at bedside. Continue with current management for alcohol detox. CIWA scores has been low and we will continue to monitor closely. Will cont to taper the ativan down today. If stays stable we will possibly be able to discharge the patient tomorrow evening.
--- NOTE | 2016-04-17 17:22 | NUR ---
Continue to follow patients progress as it relates to his detox and assist with aftercare planning. As stated previously, plan is for patient to go to [facility] in [place], [place]. Discharge is anticipated for tomorrow, but per [facility] dealer compliance representative Ron Park, patients will put him on a plane on Friday morning. I have confirmed this plan with Ruth Ann this afternoon. Will follow.
[2016-04-18 00:35] VITALS: BP 145/100
--- NOTE | 2016-04-18 06:01 | PN- Housestaff ---
IHSAN COPELAND 04/18/16 0600: Subjective Follow-up For: 1. alcohol detox Subjective: The patient has been comfortable overnight. Blood pressure pressure was slightly elevated in the range of 140/88, facial swelling was decreased. CIWA 0. Patient was requesting to be discharged today. Review of Systems Constitutional: Reports: see HPI. Objective Last 24 Hrs of Vital Signs/I&O Vital Signs Date Time Temp Pulse Resp B/P Pulse O2 O2 Flow FiO2 Ox Delivery Rate 04/18 0035 98.1 68 20 145/100 97 04/17 1616 97.4 72 21 120/88 96 Room Air 04/17 0823 98.3 60 20 117/78 98 Room Air Intake & Output 04/18 0800 04/18 0000 04/17 1600 Intake Total 480 700 Output Total Balance 480 700 Intake, Oral 480 700 Patient 172 lb Weight Physical Exam General Appearance: No Acute Distress Other Physical Findings: General Exam: AAOx3, No acute distress, swelling face-left side of the face, very minimal Skin: No rashes, no breakdown HEENT: PERRLA, EOMI Neck: Supple, No JVD No cervical lymphadenopathy CVS: Reg Rate, Normal S1,S2, No MGR Resp: Normal air entry, no ronchi/rales Abdomen: Soft, No tenderness, Normal Bowel Sounds Neuro: Normal Speech, Strength 5/5 b/l x 4 extremities, Sensation intact, CN III -XII NL, Reflexes 2+ Extremities: No cyanosis, pedal edema Current Medications: Current Medications Sig/Dorina Start time Last Medication Dose Route Stop Time Status Admin Atorvastatin Calcium 20 MG 1700 04/14 1700 AC 04/17 PO 1615 Diphenhydramine HCl 50 MG ONCE ONE 04/17 0830 DC 04/17 PO 04/17 0831 1017 Docusate Sodium 100 MG DAILY 04/16 1000 AC 04/17 PO 1017 Enoxaparin Sodium 40 MG DAILY 04/13 1726 AC 04/17 SC 1018 Folic Acid 1 MG DAILY 04/14 1000 AC 04/17 PO 04/18 1002 1017 Gabapentin 600 MG TID 04/13 2199 AC 04/17 PO 2212 Ibuprofen 600 MG Q4P PRN 04/13 2015 AC 04/14 PO 0020 Lisinopril 10 MG DAILY 04/16 1000 DC 04/16 PO 1006 Lorazepam 1 MG TID 04/17 2199 AC 04/17 PO 2212 Lorazepam 1.5 MG TID 04/16 2200 DC 04/17 PO 04/17 1700 1613 Lorazepam 0 Q1P PRN 04/13 2015 AC 04/16 IV 1841 Metoprolol Succinate 50 MG DAILY 04/14 1000 AC 04/17 PO 1019 Naltrexone HCl 50 MG DAILY 04/14 1645 AC 04/17 PO 1019 Nicotine 14 MG DAILY 04/13 1809 AC 04/17 TOP 1018 Ondansetron HCl 4 MG Q6P PRN 04/14 1415 AC 04/15 IV 0906 Patient Medication 1 ED .STK-MED ONE 04/17 1408 DC Teaching ED 04/17 1409 Ramelteon 8 MG AT BEDTIME 04/13 2199 AC 04/17 PO 2211 Senna/Docusate Sodium 1 TAB BID PRN 04/16 0900 AC PO Thiamine HCl 100 MG DAILY 04/14 1000 AC 04/17 PO 04/18 1002 1017 Trazodone HCl 150 MG AT BEDTIME 04/14 2199 AC 04/17 PO 2211 Last 24 Hrs of Lab/Wilman Results Last 24 Hrs of Labs/Mics: Laboratory Tests 04/17/16 0646: CBC w Diff NO MAN DIFF REQ, RBC 5.05, MCV 98.3 H, MCH 33.3 H, RDW 13.7, MPV 8.7, Gran % 50.0, Lymphocytes % 41.2, Monocytes % 4.8, Eosinophils % 3.4, Basophils % 0.6, Absolute Granulocytes 3.5, Absolute Lymphocytes 2.9, Absolute Monocytes 0.3, Absolute Eosinophils 0.2, Absolute Basophils 0, PUBS MCHC 33.9 Assessment/Plan Assessment: Ms Maguire is a 50-year-old man has a past medical history of 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 Admission diagnosis: #1 alcohol detox Below is the problem list and plan: #1 alcohol detox- continue Ativan 1 mg when necessary as per CIWA. Ativan standing dose has been decreased to 0.5 mg twice a day, with a recommendation to take his medications as prescribed at the time of discharge.CIWA protocol. Continue thiamine, multivitamin, folate acid. No signs and symptoms of liver disease at this time. Continue to monitor closely for alcohol withdrawal, and seizures. #2 hypertension and hyperlipidemia- continue metoprolol xl and atorvastatin at his home dose. Added Dyazide to his blood pressure regimen. #3 mental health-psychiatry evaluation while in the hospital. Re-initiate trazodone for bedtime. #4 thrombocytopenia-platelet counts have been stabilized. 93K. #3 DVT prophylaxis-Lovenox. Problem List: 1. Alcohol dependence with withdrawal 2. Suicide ideation Pain Ratin Pain Location: None Pain Goal: Pain 4 or less Pain Plan: Tylenol when necessary Tomorrow's Labs & Rationales: No labs are necessary. CATALINO SHEPARD MD 04/18/16 3037: Attending MD Review Statement Attending Statement Attending MD Statement: examined this patient, discuss w/resident/PA/BREWERY REPRESENTATIVE, agreed w/resident/PA/BREWERY REPRESENTATIVE, reviewed EMR data (avail)
[2016-04-18 07:56] VITALS: BP 140/88
[2016-04-18] MEDS ORDERED: ROZEREM8 M1 PO (08:43)
[2016-04-18] MEDS ORDERED: ATIVAN0.5 M1 PO (08:44)
[2016-04-18 09:00] VITALS: BP 140/88
[2016-04-18 09:08] LABS: ABSOLUTE BASOPHIL COUNT 0 /CUMM (0.0-0.2); ABSOLUTE EOSINOPHIL COUNT 0.2 /CUMM (0.0-0.7); ABSOLUTE GRANULOCYTE CT 2.4 /CUMM (1.4-6.5); ABSOLUTE LYMPH COUNT 3.3 /CUMM (1.2-3.4); ABSOLUTE MONOCYTE COUNT 0.4 /CUMM (0.10-0.60); BASOPHIL % 0.4 % (0.0-2.0); EOSINOPHIL % 3.8 % (0-5); GRANULOCYTE % 37.7 % (42.2-75.2); HEMATOCRIT 46.5 % (42-52); MEAN CORPUSCULAR HGB 33.5 PG (27.0-31.0); MEAN CORPUSCULAR HGB CONC 34.1 G/DL (33.0-37.0); MEAN CORPUSCULAR VOLUME 98.3 FL (80.0-94.0); MEAN PLATELET VOLUME 8.9 FL (7.4-10.4); PLATELET COUNT 93 /CUMM (130-400); RBC DISTRIBUTION WIDTH 13.3 % (11.5-14.5); RED BLOOD CELL CT 4.73 /CUMM (4.70-6.10); WHITE BLOOD CELL COUNT 6.4 /CUMM (4.8-10.8)
[2016-04-18] MEDS ORDERED: HYDROCHLOROTHIA25 M1 PO ×2 (10:43→15:02)
--- NOTE | 2016-04-18 10:46 | Patient Discharge Instructions ---
Discharge Instructions General Discharge Information You were seen/treated for: 1. Alcohol detox Watch for these problems: 1. seizures 2. headache, tremors Special Instructions: 1. please follow up with your pcp within one week of discharge. 2. Please take your medications as prescribed. Acute Coronary Syndrome Inclusion Criteria At DC or during hospital stay patient has or had the following: ACS DIAGNOSIS No Discharge Core Measures Meds if any: Prescribed or Continued at Discharge Meds if any: NOT Prescribed or Continued at Discharge Congestive Heart Failure Inclusion Criteria At DC or during hospital stay patient has or had the following: CHF DIAGNOSIS No Discharge Core Measures Meds if any: Prescribed or Continued at Discharge Meds if any: NOT Prescribed or Continued at Discharge Cerebrovascular accident Inclusion Criteria At DC or during hospital stay patient has or had the following: CVA/TIA Diagnosis No Discharge Core Measures Meds if any: Prescribed or Continued at Discharge Meds if any: NOT Prescribed or Continued at Discharge Venous thromboembolism Inclusion Criteria VTE Diagnosis No VTE Type NONE VTE Confirmed by (Test) NONE Discharge Core Measures - Per Current guidelines, there needs to be overlap - treatment for the first 5 days of Warfarin therapy. - If discharged on Warfarin prior to 5 days of - overlap therapy, the patient will need to be - assessed for post discharge needs including - *Post discharge parental anticoagulation - *Warfarin and/or parental anticoagulation education - *Follow up date to check INR post discharge At least 5 days overlap therapy as Inpatient No Meds if any: Prescribed or Continued at Discharge Note: Overlap Therapy is Warfarin and Anticoagulant Meds if any: NOT Prescribed or Continued at Discharge
--- NOTE | 2016-04-18 18:08 | Discharge Summary ---
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 He was on his way to go to alcohol detox facility in [place]. At the time of admission, vitals-temp 96.9, pulse rate 87, respiratory 20, blood pressure 122/60, pulse ox-96% on room air. Laboratory findings indicated WBC 7.1, hemoglobin 16.7/hematocrit 49.2, MCV 97.3, platelets 146, normal electrolytes sodium 140, potassium 4.1, chloride 96, bicarbonate 23, normal renal function BUN 11, serum creatinine 0.6, anion gap 21 (likely due to alcohol ), liver function-AST 61, ALT 56, alkaline phosphatase 115 (likely due to acute alcohol intake). Admission diagnosis: #1 alcohol detox Below is the problem list and plan: #1 alcohol detox- patient was admitted on general medicine floor for monitoring for any withdrawal symptoms. He was treated with intravenous benzodiazepine- Ativan and was tapered over to by mouth Ativan. CIWA scores remained low during the stay in the hospital. Did not have any withdrawal seizures. He was continued on thiamine, multivitamin and folate acid. Did not have any signs and symptoms of liver disease. Thrombocytopenia was noted, but stable. Social work was consulted for advice, who made arrangements for him to be admitted into a detox facility at [place]. #2 hypertension and hyperlipidemia- continued on metoprolol and atorvastatin at his home dose. During the stay, blood pressures remained slightly elevated after which lisinopril was added to his antihypertensive regimen. After 24 hours, and he developed swelling of left side of his face, which soon subsided after discontinuation of lisinopril. Lisinopril was added to the list of allergies in his medical record. Although a short-acting drug, thiazide was added to his antihypertensive regimen, with adequate blood pressure control. #3 mental health-he was continued on trazodone and naltrexone. Psychiatrist- Lazaro Roy APRN was consulted for advice. #3 DVT prophylaxis-Lovenox. Allergies: Coded Allergies: lisinopril (Severe, 04/18/16) Disposition Summary Disposition Principal Diagnosis: Alcohol detox Additional Diagnosis: Hypertension Discharge Disposition: home or self care Discharge Instructions General Discharge Information Code Status: Full Code Patient's Diet: As tolerated Patient's Activity: As tolerated Follow-Up Instructions/Appts: 1. please follow up with your pcp within one week of discharge. 2. Please take your medications as prescribed. Medications at Discharge Discharge Medications: Continue taking these medications: Metoprolol Succinate (Metoprolol Succinate) 50 MG TAB.ER.24H 1 Tablet ORAL DAILY Qty = 30 Comments: LAST GIVEN 04/18/16 @ 0930 Gabapentin (Gabapentin) 300 MG CAPSULE 2 Capsule ORAL THREE TIMES DAILY Qty = 180 Comments: LAST GIVEN 04/18/16 @ 1600 Atorvastatin Calcium (Lipitor) 20 MG TABLET 1 Tablet ORAL DAILY Qty = 30 Comments: LAST GIVEN 04/18/16 @ 0930 Multivitamin (Daily Multiple Vitamin) 1 EACH TABLET 1 Tablet ORAL DAILY Comments: NOT GIVEN Start taking the following new medications: Hydrochlorothiazide (Hydrochlorothiazide) 25 MG TABLET 1 Tablet ORAL DAILY Qty = 30 No Refills Instructions: . Ramelteon (Rozerem) 8 MG TABLET 8 Milligram ORAL AT BEDTIME Days = 30 No Refills Lorazepam (Ativan) 0.5 MG TABLET 1 Tablet ORAL TWICE DAILY Qty = 2 No Refills Copies To: JOSELUIS ARANA,HAWA Colindres MD Review Statement Documenting Attending: CATALINO SHEPARD MD
== END 2016-04-18 16:35 | DRG 897 ==
LOC: ENRESERVDT → ENRESERVTM → ERH 11:49 → ERHI 15:08 → 2NB 15:08 → ENPENDDIS 15:08 → 2NB 17:49
PROVIDERS: Emergency Medicine; Internal Medicine Endocrinology, Diabetes & Metabolism; Student in an Organized Health Care Education/Training Program; ADMIT Internal Medicine
DX: F10.239 Alcohol dependence with withdrawal, unspecified (principal); R45.851 Suicidal ideations; D69.6 Thrombocytopenia, unspecified; I10 Essential (primary) hypertension; E78.5 Hyperlipidemia, unspecified; K21.9 Gastro-esophageal reflux disease without esophagitis; R56.9 Unspecified convulsions; F32.9 Major depressive disorder, single episode, unspecified
CPT/HCPCS: 2NBSP; 36415; 80307; 82436; G0480; J1650; J2060; J2405; J3490; J7060